=== PATIENT | female | born 1945 | race Caucasian/White ===

== ENCOUNTER 2018-02-23 09:31 | Outpatient (CLI) | payer OTHER ==
[~2018-02-23 09:31] MED LIST: CELEXA20 MG PO; CLONAZEPAM0.5 MG PO; IPRATROPIU0.2 MG/1 M IH; LIPITOR20 MG PO; LOZARTAN; METFORMIN HCL500 MG PO; NEURONTIN300 MG PO; SYMBICORT IH
== END 2018-02-23 10:30 | disposition home or self-care (01) ==
LOC: LAB 09:31
DX: N39.0 Urinary tract infection, site not specified (principal)

== ENCOUNTER 2018-03-03 07:00 | Day surgery (SDC) | payer OTHER ==
[2018-03-03] MEDS ORDERED: MACROBID 100 M100 MG PO (15:06)
[2018-03-03] MEDS ORDERED: ULTRACET PO (15:06)
== END 2018-03-03 16:10 | disposition home or self-care (01) ==
LOC: CIR.AMB 07:00
DX: T83.89XA Other specified complication of genitourinary prosthetic devices, implants and grafts, initial encounter (principal); R39.14 Feeling of incomplete bladder emptying